=== PATIENT | male | born 1995 | race Caucasian/White ===

== ENCOUNTER 2018-07-08 20:28 | Emergency (ER) | payer OTHER ==
[~2018-07-08] VITALS: Ht 180.3 cm; Wt 111.1 kg
[2018-07-08 21:28] VITALS: BP 152/90
[2018-07-08] MEDS ORDERED: ACETAMINOPHEN 325 MG TABLET ONE (21:56)
--- NOTE | 2018-07-08 21:57 | NUR ---
PT TO RADIOLOGY FOR XR
[2018-07-08] MEDS ORDERED: ACETAMINOPHEN 325 MG TABLET PO ONE (22:00)
== END 2018-07-08 23:57 | disposition home or self-care (01) ==
LOC: ER 20:29
DX: S62.397A Other fracture of fifth metacarpal bone, left hand, initial encounter for closed fracture (principal); S60.221A Contusion of right hand, initial encounter; F17.210 Nicotine dependence, cigarettes, uncomplicated; W21.89XA Striking against or struck by other sports equipment, initial encounter; Y93.B9 Activity, other involving muscle strengthening exercises; Y92.39 Other specified sports and athletic area as the place of occurrence of the external cause; Y99.8 Other external cause status
CPT/HCPCS: 29125; 73110; 73130 ×2; 99283; 99406; A4606

== ENCOUNTER 2021-02-17 11:13 | Emergency (ER) | payer MEDICAID, OTHER ==
[~2021-02-17] VITALS: Ht 177.8 cm; Wt 99.8 kg
--- NOTE | 2021-02-17 11:23 | NUR ---
TO ER BED 7, C/O RIB PAIN AFTER PLAYING BASKETBALL LAST NIGHT, AAOX3, BREATHING EVEN AND NON LABORED, AWAITING MD BONNER
--- NOTE | 2021-02-17 11:35 | NUR ---
DR CARRENO AT BEDSIDE FOR EVAL.
--- NOTE | 2021-02-17 11:48 | NUR ---
RADIOLOGY AT BEDSIDE FOR L SIDE RIB XRAY.
[2021-02-17] MEDS ORDERED: KETOROLAC TROMETHAMINE INJ 30 MG/ML VIAL IM ONE (12:00)
[2021-02-17] MEDS ORDERED: KETOROLAC TROMETHAMINE INJ 30 MG/ML VIAL ONE (12:05)
--- NOTE | 2021-02-17 12:49 | NUR ---
Patient discharged to home in stable condition. Written and verbal after care instructions given. Patient verbalizes understanding of instruction.
[2021-02-17 12:52] VITALS: BP 131/69
== END 2021-02-17 12:52 | disposition home or self-care (01) ==
LOC: ER 11:17
DX: S20.212A Contusion of left front wall of thorax, initial encounter (principal); F17.210 Nicotine dependence, cigarettes, uncomplicated; W21.05XA Struck by basketball, initial encounter; Y93.67 Activity, basketball; Y92.310 Basketball court as the place of occurrence of the external cause; Y99.8 Other external cause status
CPT/HCPCS: 71100; 96372; 99283; J1885

== ENCOUNTER 2023-01-01 13:35 | Emergency (ER) | payer SELFPAY ==
[~2023-01-01] VITALS: Ht 180.3 cm; Wt 99.8 kg
[2023-01-01 14:39] LABS: BASOPHILS # (AUTO) 0.1 K/uL (0.0-0.2); BASOPHILS % (AUTO) 1.1 % (0.0-2.0); EOSINOPHILS # (AUTO) 0.1 K/uL (0.0-0.7); EOSINOPHILS % (AUTO) 0.7 % (0.0-6.0); HEMATOCRIT 46 % (39-51); HEMOGLOBIN 15.8 g/dL (13.5-17.5); LYMPHOCYTES # (AUTO) 2.7 K/uL (0.8-4.8); LYMPHOCYTES % (AUTO) 22.9 % (20.0-44.0); MEAN CORPUSCULAR HEMOGLOBIN 32 PG (26.0-33.0); MEAN CORPUSCULAR HGB CONC 34 g/dl (31.0-36.0); MEAN CORPUSCULAR VOLUME 94 fL (80-96); MONOCYTES # (AUTO) 0.9 K/uL (0.1-1.30); MONOCYTES % (AUTO) 7.3 % (2.0-12.0); NEUTROPHILS # (AUTO) 8.1 K/uL (1.8-8.9); PLATELET COUNT (AUTO) 317 K/uL (150-450); RED BLOOD CELL COUNT(AUTO) 4.91 MIL/uL (4.5-6.0); RED CELL DISTRIBUTION WIDTH 13.1 % (11.5-15.0); WHITE BLOOD COUNT (AUTO) 11.9 K/uL (4.3-11.0)
[2023-01-01 15:03] LABS: BILIRUBIN,DIRECT 0.1 mg/dL (0.0-0.2); BILIRUBIN,TOTAL 0.6 mg/dL (0.2-1.0); CALCIUM, SERUM 9.6 mg/dL (8.5-10.1); CREATININE 1.3 mg/dL (0.6-1.3); TOTAL PROTEIN, SERUM 8.2 g/dL (6.4-8.2)
[2023-01-01] MEDS ORDERED: OMEP20CA15 PO (15:23)
[2023-01-01 15:34] VITALS: BP 125/73; TEMP 98.3; O2SAT 99
[2023-01-01 15:48] LABS: APPEARANCE,URINE CLEAR (CLEAR); BILIRUBIN,URINE NEGATIVE (NEGATIVE); BLOOD, URINE NEGATIVE Ery/uL (NEGATIVE); COLOR,URINE YELLOW (YELLOW); KETONES,URINE NEGATIVE (NEGATIVE); LEUKOCYTE ESTERASE ,URINE NEGATIVE (NEGATIVE); NITRITE, URINE NEGATIVE (NEGATIVE); PROTEIN,URINE NEGATIVE (NEGATIVE); UGLUCOSE NEGATIVE (NEGATIVE); UROBILINOGEN,URINE 0.2 EU/dL (0.2)
== END 2023-01-01 15:35 | disposition home or self-care (01) ==
LOC: ER 13:36
DX: K21.9 Gastro-esophageal reflux disease without esophagitis (principal); F17.210 Nicotine dependence, cigarettes, uncomplicated
CPT/HCPCS: 36415; 80048-TC; 80076-TC; 83690-TC; 84702-TC; 85025-TC; 87086-TC